=== PATIENT | female | born 1945 | race Caucasian/White ===

== ENCOUNTER 2018-04-19 11:21 | Emergency (ER) | payer MEDICARE, OTHER ==
[2018-04-19 13:02] LABS: CHLORIDE,CL 106 mmol/L (98-107); SODIUM,NA 139 mmol/L (136-145)
[2018-04-19 13:04] LABS: ANION GAP 11.3 mmol/L (10-20)
[2018-04-19] MEDS: Enoxaparin 80 MG/0.8 ML Syringe SUBCUT ONE (13:30)
[2018-04-19] MEDS: Take Home: Acetaminophen/HYDROcodone 325-5 MG, 5 Tab Pack PO ONE (13:35)
--- NOTE | 2018-04-19 13:35 | EDM.PDOC ---
ED HPI GENERAL MEDICAL PROBLEM - General Chief Complaint: Lower Extremity Injury/Pain Stated Complaint: ER VISIT Time Seen by Provider: 04/19/18 11:30 Source of Information: Reports: Patient History Limitations: Reports: No Limitations - History of Present Illness INITIAL COMMENTS - FREE TEXT/NARRATIVE: 4 days of pain to posterior and L knee pain and posterior thigh pain. States that she woke with the pain, and it is gradually getting worse. Denies any trauma. NSAIDS have not helped. She denies any trauma or falls. No paresthesia to the distal portion of the extremity. No duskiness or coolness to the extremity. Location: Reports: Lower Extremity, Left Left Knee Pain Score (Numeric/FACES): 10 - Related Data Allergies Allergy/AdvReac Type Severity Reaction Status Date / Time hydrochlorothiazide Allergy Hives Verified 04/19/18 11:41 meperidine [From Demerol] Allergy Hives Verified 04/19/18 11:41 Penicillins Allergy Other Verified 04/19/18 11:27 Home Meds: Home Meds Enoxaparin Sodium [Lovenox] 80 mg SQ ONETIME #1 ml 04/19/18 [Rx] Lisinopril 40 mg PO DAILY 04/19/18 [History] NIFEdipine [Nifedipine ER] 30 mg PO DAILY 04/19/18 [History] Rosuvastatin [Crestor] 5 mg PO DAILY 04/19/18 [History] Past Medical History Cardiovascular History: Reports: High Cholesterol, Hypertension Social & Family History - Tobacco Use Smoking Status *Q: Current Every Day Smoker Years of Tobacco use: 60 Packs/Tins Daily: 0.5 Review of Systems - Review of Systems Review Of Systems: See Below Constitutional: Reports: No Symptoms Respiratory: Reports: No Symptoms Cardiovascular: Reports: No Symptoms Musculoskeletal: Reports: Other (see HPI) Skin: Reports: No Symptoms Neurological: Reports: No Symptoms ED EXAM, GENERAL - Physical Exam Exam: See Below Exam Limited By: No Limitations General Appearance: Alert, WD/WN, No Apparent Distress Respiratory/Chest: No Respiratory Distress, Lungs Clear, Normal Breath Sounds, No Accessory Muscle Use, Chest Non-Tender Cardiovascular: Normal Peripheral Pulses, Regular Rate, Rhythm, No Edema, No Gallop, No JVD, No Murmur, No Rub Peripheral Pulses: 3+: Posterior Tibial (L), Dorsalis Pedis (L) Extremities: Normal Inspection, Normal Range of Motion, No Pedal Edema, Normal Capillary Refill, Other (pain with manipulation of knee and with palpation to posterior knee/thigh. No duskiness. Pulses present.) Course - Vital Signs Last Recorded V/S: Last Vital Signs Temp 37.0 C 04/19/18 11:30 Pulse 99 04/19/18 11:30 Resp 16 04/19/18 11:30 BP 169/79 H 04/19/18 11:30 Pulse Ox 96 04/19/18 11:30 - Orders/Labs/Meds Orders: Active Orders 24 hr Category Date Time Status Knee 3V Lt [CR] Stat Exams 04/19/18 11:27 Taken Labs: Laboratory Tests 04/19/18 04/19/18 04/19/18 Range/Units 11:40 11:40 11:40 WBC 8.1 (4.0-10.0) x10^3/uL RBC 4.89 (4.00-5.50) x10^6/uL Hgb 14.9 (12.0-16.0) g/dL Hct 43.9 (33.0-47.0) % MCV 89.8 (78.0-93.0) fL MCH 30.5 (26.0-32.0) pg MCHC 33.9 (32.0-36.0) g/dL RDW Coeff of Melvi 15.4 H (10.0-15.0) % Plt Count 290 (130-400) x10^3/uL Neut % (Auto) 64.8 (50.0-80.0) % Lymph % (Auto) 25.8 (25.0-50.0) % Castro % (Auto) 7.9 (2.0-11.0) % Eos % (Auto) 0.9 (0.0-4.0) % Baso % (Auto) 0.6 (0.2-1.2) % PT (9.6-11.4) SEC INR (2.0-3.5) D-Dimer, Quantitative 0.64 H (<=0.58) mg/LFEU Sodium (136-145) mmol/L Potassium (3.5-5.1) mmol/L Chloride (98-107) mmol/L Carbon Dioxide (21-32) mmol/L Anion Gap (10-20) mmol/L BUN (7-18) mg/dL Creatinine (0.55-1.02) mg/dL Est Cr Clr Drug Dosing mL/min Estimated GFR (MDRD) Glucose (74-106) mg/dL Uric Acid 4.1 (2.6-6.0) mg/dL Calcium (8.5-10.1) mg/dL Corrected Calcium (8.5-10.1) mg/dL Total Bilirubin (0.2-1.0) mg/dL AST (15-37) U/L ALT (14-59) U/L Alkaline Phosphatase (46-116) U/L C-Reactive Protein 0.2 (<=0.9) mg/dL Total Protein (6.4-8.2) g/dL Albumin (3.4-5.0) g/dL Globulin Albumin/Globulin Ratio 04/19/18 04/19/18 Range/Units 11:40 11:40 WBC (4.0-10.0) x10^3/uL RBC (4.00-5.50) x10^6/uL Hgb (12.0-16.0) g/dL Hct (33.0-47.0) % MCV (78.0-93.0) fL MCH (26.0-32.0) pg MCHC (32.0-36.0) g/dL RDW Coeff of Melvi (10.0-15.0) % Plt Count (130-400) x10^3/uL Neut % (Auto) (50.0-80.0) % Lymph % (Auto) (25.0-50.0) % Castro % (Auto) (2.0-11.0) % Eos % (Auto) (0.0-4.0) % Baso % (Auto) (0.2-1.2) % PT 9.8 (9.6-11.4) SEC INR 0.9 L (2.0-3.5) D-Dimer, Quantitative (<=0.58) mg/LFEU Sodium 139 (136-145) mmol/L Potassium 4.3 (3.5-5.1) mmol/L Chloride 106 (98-107) mmol/L Carbon Dioxide 26 (21-32) mmol/L Anion Gap 11.3 (10-20) mmol/L BUN 13 (7-18) mg/dL Creatinine 0.7 (0.55-1.02) mg/dL Est Cr Clr Drug Dosing 54.01 mL/min Estimated GFR (MDRD) > 60 Glucose 100 (74-106) mg/dL Uric Acid (2.6-6.0) mg/dL Calcium 9.0 (8.5-10.1) mg/dL Corrected Calcium 8.92 (8.5-10.1) mg/dL Total Bilirubin 0.4 (0.2-1.0) mg/dL AST 17 (15-37) U/L ALT 24 (14-59) U/L Alkaline Phosphatase 85 (46-116) U/L C-Reactive Protein (<=0.9) mg/dL Total Protein 7.3 (6.4-8.2) g/dL Albumin 4.1 (3.4-5.0) g/dL Globulin 3.2 Albumin/Globulin Ratio 1.28 Meds: Medications Discontinued Medications Generic Name Dose Route Start Last Admin Trade Name Zachery PRN Reason Stop Dose Admin Hydrocodone Bitart/Acetaminophen 1 packet 04/19/18 13:25 04/19/18 13:35 Take Home: Acetam/Hydrocodon 325-5 Mg, 5 Pack PO 04/19/18 13:26 1 packet ONETIME ONE Administration Enoxaparin Sodium 80 mg 04/19/18 13:23 04/19/18 13:30 Lovenox SUBCUT 04/19/18 13:24 80 mg ONETIME ONE Administration Enoxaparin Sodium Confirm 04/19/18 13:30 04/19/18 13:36 Lovenox Administered 04/19/18 13:31 Not Given Dose 80 mg .ROUTE .STK-MED ONE Departure - Departure Time of Disposition: 13:37 Disposition: Home, Self-Care 01 Clinical Impression: DVT (deep venous thrombosis) - Discharge Information Prescriptions: Enoxaparin Sodium [Lovenox] 80 mg SQ ONETIME #1 ml Instructions: Acetaminophen; Hydrocodone tablets or capsules, Enoxaparin injection, How and Where to Give Subcutaneous Enoxaparin Injections, Deep Vein Thrombosis Referrals: Mei Pemberton DO [Primary Care Provider] - Forms: ED Department Discharge Additional Instructions: Lovenox tomorrow morning. Go to [facility] tomorrow morning. Be there at 7 AM and bring the order that I am giving your. [place] 5/325mg 1 every 6 hours as needed for pain. I will call you with the results of the ultrasound and instructions on what to do after they give me the results. - My Orders Last 24 Hours: My Active Orders 04/19/18 11:27 Knee 3V Lt [CR] Stat - Assessment/Plan Last 24 Hours: My Active Orders 04/19/18 11:27 Knee 3V Lt [CR] Stat Plan: Her d dimer was positive, so we will treat for DVT pending ultrasound tomorrow at [facility] [place]. Lovenox tomorrow morning. Go to [facility] tomorrow morning. Be there at 7 AM and bring the order that I am giving your. [place] 5/325mg 1 every 6 hours as needed for pain. I will call you with the results of the ultrasound and instructions on what to do after they give me the results.
[2018-04-19] MEDS: Enoxaparin 80 MG/0.8 ML Syringe ONE (13:36)
== END 2018-04-19 13:50 | disposition home or self-care (01) ==
LOC: VM.ED 11:21
DX: I82.402 Acute embolism and thrombosis of unspecified deep veins of left lower extremity (principal); I10 Essential (primary) hypertension; F17.210 Nicotine dependence, cigarettes, uncomplicated; Z88.0 Allergy status to penicillin; Z79.899 Other long term (current) drug therapy; Z88.8 Allergy status to other drugs, medicaments and biological substances
CPT/HCPCS: 36415; 73562-LT; 80053; 84550; 85025; 85379; 85610; 86140; 96372; 99283; 99284-GF; A9270-GY; J1650